=== PATIENT | female | born 2000 | race African-American/Black ===

== ENCOUNTER 2025-05-20 12:46 | Emergency (ER) | payer OTHER ==
[~2025-05-20] VITALS: Ht 144.8 cm; Wt 91.0 kg
[2025-05-20 12:53] VITALS: BP 138/92; PULSE 99; RESP 18; TEMP 36.7; O2SAT 99
== END 2025-05-20 13:19 | disposition home or self-care (01) ==
LOC: ER 12:46
DX: E11.9 Type 2 diabetes mellitus without complications (principal); I10 Essential (primary) hypertension; Z00.00 Encounter for general adult medical examination without abnormal findings
CPT/HCPCS: 99281; 99282